=== PATIENT | male | born 1955 | race Caucasian/White ===

== ENCOUNTER 2020-10-09 01:10 | Emergency (ER) | payer SELFPAY ==
[~2020-10-09 01:10] MED LIST: ELIQUIS 5 MG TAB5 MG PO; SOTALOL80 MG PO
[2020-10-09 05:08] LABS: HEMOGLOBIN 14.1 gm/dl (14.0-17.5); RED BLOOD COUNT 4.44 M/UL (4.20-5.50); WHITE BLOOD COUNT 9.6 K/UL (4.5-11.0)
[2020-10-09 05:46] LABS: BUN/CREATININE RATIO 17 (0-10)
== END 2020-10-09 09:01 | disposition home or self-care (01) ==
LOC: ER1 01:10
PROVIDERS: Physician Assistant
DX: K61.0 Anal abscess (principal)
CPT/HCPCS: 46050; 80053; 81001; 83605; 85025; 96374; 96375; 99283; J2270; J2543; J7030; Q9967